=== PATIENT | female | born 1930 | race Caucasian/White ===

== ENCOUNTER → 2016-04-26 | Outpatient (CLI) | payer MEDICARE, OTHER ==
[2016-04-26 18:23] VITALS: BP 126/70
== END ==
LOC: MHUC 13:58
PROVIDERS: ATTEND Physician Assistant
DX: L03.113 Cellulitis of right upper limb (principal)
CPT/HCPCS: 99214

== ENCOUNTER → 2016-04-26 | Outpatient (CLI) | payer MEDICARE, OTHER ==
[2016-04-26 14:46] LABS: BASOPHILS % (AUTO) 0 % (0-2); EOSINOPHILS # (AUTO) 0.1 10^3uL; EOSINOPHILS % (AUTO) 2 % (0-4); LYMPHOCYTES # (AUTO) 0.8 X10^3; MEAN CORPUSCULAR HEMOGLOBIN 29.6 PG (26.0-34.0); MEAN CORPUSCULAR HGB CONC 31.9 g/dL (31.0-37.0); MEAN CORPUSCULAR VOLUME 93 FL (80-100); MEAN PLATELET VOLUME 8.9 FL (6.0-9.5); MONOCYTES # (AUTO) 0.6 X10^3; MONOCYTES % (AUTO) 10 % (3-11); NEUTROPHILS % (AUTO) 73 % (51-67); PLATELET COUNT 262 10^3uL (150-450); WHITE BLOOD COUNT 5.49 10^3uL (4.0-11.0)
[2016-04-26 15:26] LABS: ERYTHROCYTE SEDIMENTATION RT* 25 mm/hr (0-23)
== END ==
LOC: LAB 14:33 → EDSTATUS 05-08 07:55
PROVIDERS: ATTEND Physician Assistant
DX: R21 Rash and other nonspecific skin eruption (principal)
CPT/HCPCS: 36415; 85025; 85652; 86140

== ENCOUNTER → 2016-04-29 | Outpatient (CLI) | payer MEDICARE, OTHER ==
[2016-04-29 15:03] VITALS: BP 132/75
== END ==
LOC: MHUC 14:20
PROVIDERS: ATTEND Physician Assistant
DX: L03.113 Cellulitis of right upper limb (principal)
CPT/HCPCS: 99212

== ENCOUNTER 2016-05-31 23:35 | Emergency (ER) | payer MEDICARE, OTHER ==
[~2016-05-31] VITALS: Ht 165.1 cm; Wt 74.3 kg
[~2016-05-31 23:35] MED LIST: ACET325T38 PO; ASPI-504 PO; B IN1TAB2 PO; BENZ-13 PO; BENZ150C4 PO; CALC250T2 PO; CALCUIM; CEPH-507 PO; CHOL200018 PO; DOXY100C2 PO; FLC1T PO; GBPN300C PO; GFN600TCR PO; HALO50CR2 TP; LOPE1LIQ7 PO; LOPE2CAP29 PO; LOSA1TAB70 PO; LUTE20CA PO; LVF500T PO; MAGN250T PO; METH-287 PO; METO-270 PO; MGX400T PO; MMT17NA; MNTL10T; NF-CLIN1% TOP; OMEG300C3 PO; PRED10TA PO; SERT25TA69 PO; TELM80TA PO; TR025C15 TOP; TRM50T PO; vit d
[2016-06-01] MEDS: ALBUTEROL/IPRATROPIUM 3MG-0.5MG/3ML (DUONEB) NEB VIAL INH ONE (01:06)
[2016-06-01 01:37] LABS: BASOPHILS % (AUTO) 0 % (0-2); EOSINOPHILS # (AUTO) 0.1 10^3uL; EOSINOPHILS % (AUTO) 2 % (0-4); LYMPHOCYTES # (AUTO) 1.4 X10^3; MEAN CORPUSCULAR HEMOGLOBIN 29.7 PG (26.0-34.0); MEAN CORPUSCULAR HGB CONC 32.3 g/dL (31.0-37.0); MEAN CORPUSCULAR VOLUME 92 FL (80-100); MONOCYTES # (AUTO) 0.7 X10^3; MONOCYTES % (AUTO) 13 % (3-11); NEUTROPHILS # (AUTO) 3.1 X10^3; NEUTROPHILS % (AUTO) 58 % (51-67); PLATELET COUNT 224 10^3uL (150-450); WHITE BLOOD COUNT 5.27 10^3uL (4.0-11.0)
[2016-06-01] MEDS ORDERED: DENO120V SQ (02:13)
[2016-06-01] MEDS ORDERED: ERLO150T PO (02:13)
[2016-06-01] MEDS ORDERED: LEVO500T16 PO (02:14)
[2016-06-01] MEDS ORDERED: GFN600TCR PO (02:27)
[2016-06-01] MEDS ORDERED: KETO15CR TP (02:27)
[2016-06-01] MEDS ORDERED: NF-CLINGEL TOP (02:27)
[2016-06-01] MEDS ORDERED: MMT17NA (02:27)
[2016-06-01] MEDS ORDERED: LORA10TA76 PO (02:27)
[2016-06-01] MEDS ORDERED: RANI150T11 PO (02:27)
[2016-06-01] MEDS ORDERED: POTA10CA43 PO (02:27)
[2016-06-01] MEDS ORDERED: ALBU8CC IH (02:27)
[2016-06-01] MEDS ORDERED: ONDA8TAB6 PO (02:27)
[2016-06-01] MEDS: ED- BENZONATATE 100MG (TESSALON) 6 CAPSULES/BTL PO ONE (02:32)
[2016-06-01] MEDS: LEVOFLOXACIN 250 MG TAB (LEVAQUIN) PO SCH (02:32)
--- NOTE | 2016-06-01 02:56 | NUR ---
2240: PATIENT WAS DISMISSED HOME AND ESCORTED FROM THE ER. 2248: PATIENT PRESENTED BACK TO ER - DID NOT LEAVE PARKING LOT. STATES SHE STARTED COUGHING AGAIN AND COULD NOT BREATH. PLACED BACK ON ROOM 7.
[2016-06-01] MEDS: diphenhydrAMINE 50 MG (BENADRYL) CAPSULE PO ONE (03:01)
[2016-06-01] MEDS: BENZONATATE 100 MG (TESSALON) CAPSULE PO ONE (03:01)
[2016-06-01 04:36] VITALS: BP 133/54
--- NOTE | 2016-06-01 08:06 | Diagnostic Imaging Report ---
INDICATION: Respiratory distress, lung cancer PA and lateral chest Left subclavian Port-A-Cath tip projects over the SVC. There is some right perihilar consolidation with elevation of the right hemidiaphragm. This is likely the patient's original lung cancer with some scarring in the lung. Left lung is clear. There is no effusion or pneumothorax. IMPRESSION: Right perihilar scarring not appreciably changed from 07/19/2015. Dictated by: Dictated on workstation # [id number]
== END 2016-06-01 04:30 | disposition home or self-care (01) ==
LOC: ED 23:37
DX: J06.9 Acute upper respiratory infection, unspecified (principal)
CPT/HCPCS: 36415; 71020; 85025; 86140; 94640; 99282; A9270; 99283